=== PATIENT | male | born 2000 | race Caucasian/White ===

== ENCOUNTER 2022-04-20 14:05 | Emergency (ER) | payer BC ==
[~2022-04-20] VITALS: Ht 185.4 cm; Wt 86.2 kg
[2022-04-20 14:54] VITALS: BP 156/74
[2022-04-20] MEDS ORDERED: TDAP [DIPH/PERTUSSIS/TET] 0.5 ML VIAL IM ONE ×2 (15:58→16:00)
[2022-04-20] MEDS ORDERED: LIDOCAINE 1%-EPI 1:100,000 20 ML VIAL TP ONE (16:00)
[2022-04-20] MEDS ORDERED: LIDOCAINE 1%-EPI 1:100,000 20 ML VIAL ONE (16:28)
--- NOTE | 2022-04-20 17:21 | NUR ---
VANITA JUDD AT BEDSIDE FOR SUTURING OF L FOOT LACERATION
--- NOTE | 2022-04-20 17:57 | NUR ---
Patient discharged to home in stable condition. Written and verbal after care instructions given. Patient verbalizes understanding of instruction.
== END 2022-04-20 17:58 | disposition home or self-care (01) ==
LOC: ER 14:10
DX: S91.012A Laceration without foreign body, left ankle, initial encounter (principal); Z88.8 Allergy status to other drugs, medicaments and biological substances; W26.8XXA Contact with other sharp object(s), not elsewhere classified, initial encounter; Y93.89 Activity, other specified; Y92.89 Other specified places as the place of occurrence of the external cause; Y99.8 Other external cause status
CPT/HCPCS: 12001; 90471; 90715; 99283; A6403; J3490

== ENCOUNTER 2023-04-26 09:02 | Emergency (ER) | payer BC ==
[~2023-04-26] VITALS: Ht 188 cm; Wt 102.1 kg
--- NOTE | 2023-04-26 09:20 | NUR ---
The patient bibs for c/o "Nausea/vomiting started yesterday. Hx of cyclic vomiting". Will continue to monitor the patient.
[2023-04-26] MEDS ORDERED: ONDANSETRON HCL/PF 4 MG/2 ML VIAL ONE (09:28)
[2023-04-26] MEDS ORDERED: diphenhydrAMINE HCL 50 MG/ML VIAL ONE (09:28)
[2023-04-26] MEDS ORDERED: PROCHLORPERAZINE EDISYLATE 10 MG/2 ML VIAL ONE (09:28)
[2023-04-26] MEDS ORDERED: ONDANSETRON HCL/PF 4 MG/2 ML VIAL IV ONE (09:30)
[2023-04-26] MEDS ORDERED: diphenhydrAMINE HCL 50 MG/ML VIAL IV ONE (09:30)
[2023-04-26] MEDS ORDERED: IV NS 0.9% 1,000 ML BAG IV ONE (09:30)
[2023-04-26] MEDS ORDERED: PROCHLORPERAZINE EDISYLATE 10 MG/2 ML VIAL IVP ONE (09:30)
--- NOTE | 2023-04-26 09:42 | NUR ---
THE PATIENT IS UNABLE TO PROVIDE URINE AT THIS TIME
[2023-04-26 09:49] LABS: BASOPHILS % (AUTO) 0.4 % (0.0-2.0); EOSINOPHILS % (AUTO) 4.9 % (0.0-6.0); HEMATOCRIT 45 % (39-51); HEMOGLOBIN 15.2 g/dL (13.5-17.5); LYMPHOCYTES # (AUTO) 1.1 K/uL (0.8-4.8); LYMPHOCYTES % (AUTO) 12.3 % (20.0-44.0); MEAN CORPUSCULAR HGB CONC 34 g/dl (31.0-36.0); MEAN CORPUSCULAR VOLUME 87 fL (80-96); MONOCYTES # (AUTO) 0.7 K/uL (0.1-1.30); MONOCYTES % (AUTO) 7.3 % (2.0-12.0); NEUTROPHILS # (AUTO) 6.8 K/uL (1.8-8.9); NEUTROPHILS % (AUTO) 75.1 % (43.0-81.0); PLATELET COUNT (AUTO) 303 K/uL (150-450); RED BLOOD CELL COUNT(AUTO) 5.18 MIL/uL (4.5-6.0)
[2023-04-26 10:08] LABS: CALCIUM, SERUM 9.2 mg/dL (8.5-10.1); POTASSIUM 3.4 mmol/L (3.5-5.1)
--- NOTE | 2023-04-26 10:33 | NUR ---
REFUSES TO GIVE URINE SPECIMEN DESPITE EXPLAINING RISKS AND BENEFITS. DR SEQUEIRA MADE AWARE.
[2023-04-26] MEDS ORDERED: METOCLOPRAMIDE HCL 10 MG/2 ML VIAL ONE (10:45)
[2023-04-26] MEDS ORDERED: LORAZEPAM INJ 2 MG/ML VIAL ONE (10:46)
[2023-04-26] MEDS ORDERED: METOCLOPRAMIDE HCL 10 MG/2 ML VIAL IV ONE (11:00)
[2023-04-26] MEDS ORDERED: LORAZEPAM INJ 2 MG/ML VIAL IV ONE (11:00)
--- NOTE | 2023-04-26 11:08 | NUR ---
URINE COLLECTED AND SENT TO THE LAB
--- NOTE | 2023-04-26 11:15 | NUR ---
PT PASSED PO CHALLENGE PER MD ORDER. MADE AWARE
[2023-04-26] MEDS ORDERED: ONDA4TAB5 PO (11:16)
[2023-04-26 11:34] VITALS: BP 118/79; TEMP 98.3
--- NOTE | 2023-04-26 11:34 | NUR ---
IV removed. Catheter intact and site benign. Pressure and 4x4 applied to site. No bleeding noted.Patient discharged to home in stable condition. Written and verbal after care instructions given. Patient verbalizes understanding of instruction.
[2023-04-26 11:36] LABS: BILIRUBIN,URINE 1+ (NEGATIVE); COLOR,URINE YELLOW (YELLOW); LEUKOCYTE ESTERASE ,URINE NEGATIVE (NEGATIVE); NITRITE, URINE NEGATIVE (NEGATIVE); PH,URINE 7.5 (5.0-8.0); PROTEIN,URINE TRACE mg/dl (NEGATIVE); UGLUCOSE NEGATIVE (NEGATIVE); UROBILINOGEN,URINE 0.2 EU/dL (0.2)
[2023-04-26 11:47] LABS: BACTERIA,URINE Few /HPF (None Seen); RBC,URINE NONE SEEN /HPF (0-2); WBC,URINE 0-3 /HPF (0-3)
[2023-04-26 11:48] LABS: MUCUS,URINE Many /LPF (None Seen)
[2023-04-26 11:49] LABS: SQUAMOUS EPITHELIAL CELL,UR Rare /HPF (None Seen)
== END 2023-04-26 11:35 | disposition home or self-care (01) ==
LOC: ER 09:06
DX: R11.15 Cyclical vomiting syndrome unrelated to migraine (principal); F17.200 Nicotine dependence, unspecified, uncomplicated; Z79.899 Other long term (current) drug therapy; Z88.0 Allergy status to penicillin; Z88.1 Allergy status to other antibiotic agents
CPT/HCPCS: 99284; 96374; 96375; 96361; 85025; 80048; 83690; 83735; 81001; 36415; J2060; J0780; J1200; J2765; J2405; J7030

== ENCOUNTER 2023-05-04 11:00 | Emergency (ER) | payer BC ==
[~2023-05-04] VITALS: Ht 188 cm; Wt 99.8 kg
[~2023-05-04 11:00] MED LIST: ONDA4TAB5 PO
--- NOTE | 2023-05-04 11:18 | NUR ---
[facility]ates in [facility] - 05/04/23 at 1118 by CORAZON REDUSED TO GIVE URINE SAMPLE
--- NOTE | 2023-05-04 11:19 | NUR ---
REFUSED TO GIVE URINE SAMPLE
--- NOTE | 2023-05-04 11:20 | NUR ---
REceived pt 22 yrs male from home c/o NUSEA ANS VOMITING FOR ONE WEEK AND ASKING FOR IVF TO STARTE
--- NOTE | 2023-05-04 11:25 | NUR ---
DR. SEQUEIRA AT BED SIDE SPOOKING WITH PT
[2023-05-04] MEDS ORDERED: diphenhydrAMINE HCL 50 MG/ML VIAL ONE (11:50)
[2023-05-04] MEDS ORDERED: METOCLOPRAMIDE HCL 10 MG/2 ML VIAL ONE (11:50)
[2023-05-04] MEDS ORDERED: METOCLOPRAMIDE HCL 10 MG/2 ML VIAL IV ONE (12:00)
[2023-05-04] MEDS ORDERED: diphenhydrAMINE HCL 50 MG/ML VIAL IV ONE (12:00)
[2023-05-04] MEDS ORDERED: IV NS 0.9% 1,000 ML BAG IV ONE (12:00)
--- NOTE | 2023-05-04 12:07 | NUR ---
INSERTED ANGCATG=HETER G 22 ON RT HAND PT REFUSED BLOOD TO DROW AND REFUSED URINE SEMPLE
--- NOTE | 2023-05-04 12:08 | NUR ---
PT REFUSED BLOOD TO DROW BY LAB TACH DR. LUCIANO NOTEFED AND AWARE
[2023-05-04] MEDS ORDERED: ONDANSETRON HCL/PF 4 MG/2 ML VIAL ONE (12:59)
[2023-05-04] MEDS ORDERED: ONDANSETRON HCL/PF 4 MG/2 ML VIAL IV ONE (13:00)
[2023-05-04] MEDS ORDERED: IV NS 0.9% 1,000 ML IV ONE (13:00)
--- NOTE | 2023-05-04 13:35 | NUR ---
PT FEELING BEATTER RESOLEVE
--- NOTE | 2023-05-04 14:35 | NUR ---
IV removed. Catheter intact and site benign. Pressure and 4x4 applied to site. No bleeding noted.
[2023-05-04] MEDS ORDERED: ONDA4TAB5 PO (14:36)
[2023-05-04] MEDS ORDERED: MAG355OR18 PO (14:36)
[2023-05-04] MEDS ORDERED: FAMO20TA8 PO (14:36)
--- NOTE | 2023-05-04 14:41 | NUR ---
Patient discharged to home in stable condition. Written and verbal after care instructions given. Patient verbalizes understanding of instruction.
[2023-05-04 14:59] VITALS: BP 132/87; TEMP 98.2
== END 2023-05-04 15:03 | disposition home or self-care (01) ==
LOC: ER 11:12
DX: R11.2 Nausea with vomiting, unspecified (principal); Z88.0 Allergy status to penicillin; Z88.8 Allergy status to other drugs, medicaments and biological substances; Z79.899 Other long term (current) drug therapy
CPT/HCPCS: 99284; 96374; 96361; 96375; J1200; J2765; J2405; J7030 ×2